=== PATIENT | male | born 1975 | race Caucasian/White ===

== ENCOUNTER 2018-07-04 16:19 | Emergency (ER) | payer OTHER ==
[~2018-07-04] VITALS: Ht 180.3 cm; Wt 73.1 kg
[2018-07-04 16:27] VITALS: BP 151/92
[2018-07-04 16:30] VITALS: BP 151/92
[2018-07-04] MEDS: KETOROLAC 60 MG/2 ML VIAL IM ONE (16:49)
== END 2018-07-04 17:22 | disposition left against medical advice (07) ==
LOC: MED 16:19
DX: M54.9 Dorsalgia, unspecified (principal); M54.2 Cervicalgia; F10.10 Alcohol abuse, uncomplicated; Z53.21 Procedure and treatment not carried out due to patient leaving prior to being seen by health care provider; V09.9XXA Pedestrian injured in unspecified transport accident, initial encounter; Y93.89 Activity, other specified; Y92.828 Other wilderness area as the place of occurrence of the external cause; Y99.8 Other external cause status; I10 Essential (primary) hypertension
CPT/HCPCS: 81002; 96372; 99281; J1885; 99283

== ENCOUNTER 2018-07-10 21:51 | Emergency (ER) | payer OTHER ==
[~2018-07-10] VITALS: Ht 182.9 cm; Wt 76.2 kg
[2018-07-10 22:01] VITALS: BP 144/95
--- NOTE | 2018-07-10 22:04 | NUR ---
PT TAKEN TO BED 1
--- NOTE | 2018-07-10 22:05 | NUR ---
PT PRESENTS TO ED REQUESTING MEDICATION REFILL FOR NORCO/VICODIN. PT STATES RELEASED FROM [facility] YESTERDAY. PER PT "I JUST NEED A NORCO FOR THIS PAIN-I GOT OUT OF THE HOSPITAL YESTERDAY AND THEY DIDNT GIVE ME ANY" PT PALCED INTO BED, ANTWON NOGUERA. MED HX: SCHIOPHRENIA/DEPRESSION/HTN/ANEMIA
[2018-07-10] MEDS ORDERED: KETOROLAC 30 MG/ML VIAL IM ONE (22:20)
[2018-07-10 22:33] VITALS: BP 144/95
--- NOTE | 2018-07-10 22:33 | NUR ---
Patient discharged with v/s stable. Written and verbal after care instructions given and explained. Patient alert, oriented and verbalized understanding of instructions. Ambulatory with steady gait. All questions addressed prior to discharge. ID band removed. Patient advised to follow up with PMD. Rx of NORCO AND NARCAN given. Patient educated on indication of medication including possible reaction and side effects. Opportunity to ask questions provided and answered.
== END 2018-07-10 22:33 | disposition home or self-care (01) ==
LOC: MED 21:51
DX: M54.6 Pain in thoracic spine (principal); F20.9 Schizophrenia, unspecified; Z76.0 Encounter for issue of repeat prescription
CPT/HCPCS: 96372; 99283; J1885